=== PATIENT | female | born 1990 | race Caucasian/White ===

== ENCOUNTER 2022-07-15 08:22 | Day surgery (SDC) | payer OTHER, SELFPAY ==
--- NOTE | 2022-07-15 | PATH_ITS ---
[facility] Accession Number: [id number] No. of containers..02 Tissue . 01 Material submitted: . PART A: colon - RANDOM COLON PART B: rectum - RECTAL POLYP . 01 Clinical history: . A-B: RULE OUT COLITIS . 01 Diagnosis: A. Random Colon, Biopsies: Colonic mucosa with no diagnostic abnormality. Negative for active, chronic, and microscopic colitis. Negative for dysplasia and malignancy. . B. Rectal Polyp: Hyperplastic polyp. [facility] 07/22/2022 1158 Local . 01 Electronically signed: . Cody Juarez MD, PhD, Pathologist NPI- [id number] . 01 Gross description: . Part A: RANDOM COLON: Received in formalin are 4 fragment(s) of baig, soft tissue measuring 0.3 x 0.2 x 0.2 cm to 0.4 x 0.2 x 0.2 cm submitted entirely in 1 cassette(s) Part B: RECTAL POLYP: Received in formalin is 1 fragment(s) of baig, soft tissue measuring 0.2 x 0.2 x 0.2 cm submitted entirely in 1 cassette(s) /DEEPALI 07/16/2022 2328 Local . 01 Pathologist provided ICD-10: K58.9, K62.5, K62.1 . 01 CPT . 719202, [id number] Specimen Comment: A courtesy copy of this report has been sent to [phone] Performed at: 01 [facility] [address] [place] [id number] MD Enmanuel Warren MD Phone: [phone]
[2022-07-15] MEDS: LACTATED RINGERS 1,000 ML 42 ML IV (08:36)
[2022-07-15 08:43] VITALS: BP 107/97; PULSE 97; RESP 18; TEMP 36.1; O2SAT 99; BMI 24.0
--- NOTE | 2022-07-15 09:21 | P.OP.COLON_ITS ---
Operative Date/Time/Diagnoses Date of procedure: 07/15/22 Pre-op diagnosis: See indication and findings Procedure & Clinicians Study performed: Colonoscopy Indications: Diarrhea Surgeon: Sofía Gallagher Procedure Notes Procedure in detail: After informed consent was obtained the patient was placed in left lateral de cubitus position. The video colonoscope was introduced in the rectum slowly advanced cecum. On slow withdrawal mucosa was carefully examined. The scope was removed. The patient tolerated procedure well. Blood loss none Complications none Sedation mac Findings 1. Normal terminal ileum 2. Normal colonic mucosa to cecum. Random biopsies taken to rule out microscopic colitis 3. Diminutive 3 mm polyp in the rectum cold biopsied and removed completely Will follow up with Nabila is a pathology and further suggestions. She should have her next colonoscopy at age 44.
--- NOTE | 2022-07-15 09:21 | PM.PREOP ---
Pre-operative Note COVID-19 COVID-19 status: Negative Interval Note History & Physical reviewed/Exam performed by Physician: Yes Changes to H&P: No ASA Class (for procedural sedation): II
[2022-07-15 10:23] VITALS: BP 95/50; PULSE 74; RESP 15; TEMP 36.2; O2SAT 99
[2022-07-15 10:27] VITALS: BP 100/63; PULSE 69; PULSE 72; RESP 10; RESP 12; O2SAT 100; O2SAT 99
[2022-07-15 10:32] VITALS: BP 106/64; PULSE 71; RESP 20; O2SAT 100
[2022-07-15 10:37] VITALS: BP 107/71; PULSE 69; RESP 11; TEMP 36.2; O2SAT 100
[2022-07-15 10:43] VITALS: BP 97/68; PULSE 67; RESP 13; TEMP 36.2; O2SAT 100
== END 2022-07-15 10:54 | disposition home or self-care (01) ==
PROVIDERS: PCP Family Medicine; Referring Provider Internal Medicine Gastroenterology; Visit Provider Internal Medicine Gastroenterology
PROC: 0DJD8ZZ Inspection of Lower Intestinal Tract, Via Natural or Artificial Opening Endoscopic (ICD-10-PCS; CPT 45378; principal; 2022-07-15 09:30)
DX: R19.7 Diarrhea, unspecified (principal); R19.5 Other fecal abnormalities; K62.1 Rectal polyp
CPT/HCPCS: 45380; J2704